=== PATIENT | female | born 1990 | race Caucasian/White ===

== ENCOUNTER 2018-03-18 13:16 | Inpatient (IN) | payer OTHER ==
--- NOTE | 2018-03-18 13:28 | EDPHY ---
H & P Stated Complaint: SI/plan Time Seen by Provider: 03/18/18 13:27 HPI/ROS: CHIEF COMPLAINT: Feeling suicidal HISTORY OF PRESENT ILLNESS: The patient presents the ED with suicidal thoughts with a plan to step in front of a moving vehicle or drive her vehicle into a fixed object at a high rate of speed. The patient has a history of chronic intermittent suicidal thoughts. She also has depression. She reports that she has been compliant with her regular medications. The patient denies any acute medical complaints. The patient comes to the emergency department today because she feels that she requires psychiatric hospitalization for further stabilization. REVIEW OF SYSTEMS: A comprehensive 10 point review of systems is otherwise negative aside from elements mentioned in the history of present illness. Source: Patient Exam Limitations: No limitations - Personal History LMP (Females 10-55): Over 28 Days Ago Current Tetanus/Diphtheria Vaccine: Yes Tetanus Vaccine Date: per patient report 2011 - Medical/Surgical History Hx Asthma: No Hx Chronic Respiratory Disease: No Hx Diabetes: No Hx Cardiac Disease: No Hx Renal Disease: No Hx Cirrhosis: No Hx Alcoholism: No Hx HIV/AIDS: No Hx Splenectomy or Spleen Trauma: No Other PMH: HPV, CPalsy, MULTIPLE ORTHO SURGERIES, ANXIETY, DEPRESSION, PTSD\ Past hx drug abuse - Social History Smoking Status: Heavy smoker - Physical Exam Exam: General Appearance: Alert, no distress Eyes: Pupils equal and round no pallor or injection ENT, Mouth: Mucous membranes moist Respiratory: There are no retractions, lungs are clear to auscultation Cardiovascular: Regular rate and rhythm Gastrointestinal: Abdomen is soft and nontender, no masses, bowel sounds normal Neurological: A&O, normal motor function, normal sensory exam, normal cranial nerves Skin: Warm and dry, no rashes Musculoskeletal: Neck is supple nontender Extremities: symmetrical, full range of motion Psychiatric: Endorses symptoms of depression, suicidal thoughts and a plan. Not agitated, normal thought process, conversant and cooperative Constitutional: Initial Vital Signs Temperature (C) 36.5 C 03/18/18 13:22 Heart Rate 118 H 03/18/18 13:22 Respiratory Rate 18 03/18/18 13:22 Blood Pressure 141/92 H 03/18/18 13:22 O2 Sat (%) 97 03/18/18 13:22 O2 Delivery Mode Room Air Allergies/Adverse Reactions: amitriptyline Allergy (Verified 03/18/18 13:26) cyclobenzaprine [From Flexeril] Allergy (Verified 03/18/18 13:26) dicyclomine [From Bentyl] Allergy (Verified 03/18/18 13:26) ibuprofen Allergy (Verified 03/18/18 13:26) ketorolac Allergy (Verified 03/18/18 13:26) latex Allergy (Verified 03/18/18 13:26) naproxen Allergy (Verified 03/18/18 13:26) olanzapine [From Zyprexa] Allergy (Verified 03/18/18 13:26) ziprasidone [From Geodon] Allergy (Verified 03/18/18 13:26) Home Medications: Medication Instructions Recorded Albuterol Sulfate [Ventolin Hfa] 1 - 2 puffs IH Q4H PRN 03/18/18 Clindamycin 1% [Cleocin 1%] 1 nathan TP DAILY PRN 03/18/18 Etonogestrel [Nexplanon] 68 mg SQ ONCE 03/18/18 Fluticasone Nasal [Flonase Nasal 2 sprays [place] DAILY 03/18/18 [place] (RX)] Omeprazole 40 mg PO DAILY 03/18/18 PARoxetine HCL [Paxil 30mg (*)] 30 mg PO HS 03/18/18 risperiDONE [RisperDAL] 1 mg PO HS 03/18/18 Medical Decision Making ED Course/Re-evaluation: The patient presents to the ED with suicidal thoughts. She denies any ingestion. She denies any acute medical complaints. The patient was placed on a mental health detainer in the emergency department. She was medically cleared for psychiatric evaluation. The patient was evaluated by the mental health team. She has been placed on a 72 hr mental health hold with a plan for inpatient psychiatric hospitalization. 5:30 p.m.: The patient has been accepted for involuntary psychiatric hospitalization by Dr. Edwards at [facility]. I have filled out the EMTALA transfer form. Differential Diagnosis: Differential diagnosis considered includes depression, suicidal ideation, overdose, metabolic derangement - Data Points Laboratory Results: Laboratory Results 03/18/18 13:50 03/18/18 13:50 03/18/18 03/18/18 03/18/18 15:20 13:50 13:50 WBC RBC Hgb Hct MCV MCH MCHC RDW Plt Count MPV Neut % (Auto) Lymph % (Auto) Knott % (Auto) Eos % (Auto) Baso % (Auto) Nucleat RBC Rel Count Absolute Neuts (auto) Absolute Lymphs (auto) Absolute Monos (auto) Absolute Eos (auto) Absolute Basos (auto) Absolute Nucleated RBC Immature Gran % Immature Gran # Sodium 138 mEq/L mEq/L (135-145) Potassium 3.9 mEq/L mEq/L (3.5-5.2) Chloride 105 mEq/L mEq/L (97-110) Carbon Dioxide 21 mEq/l L mEq/l (22-31) Anion Gap 12 mEq/L mEq/L (6-14) BUN 16 mg/dL mg/dL (7-23) Creatinine 0.7 mg/dL mg/dL (0.6-1.0) Estimated GFR > 60 Glucose 97 mg/dL mg/dL (70-100) Calcium 10.1 mg/dL mg/dL (8.5-10.4) Beta HCG, Qual NEGATIVE Urine Opiates Screen NEGATIVE (NEGATIVE) Urine Barbiturates NEGATIVE (NEGATIVE) Ur Phencyclidine Scrn NEGATIVE (NEGATIVE) Ur Amphetamine Screen NEGATIVE (NEGATIVE) U Benzodiazepines Scrn NEGATIVE (NEGATIVE) Urine Cocaine Screen NEGATIVE (NEGATIVE) U Marijuana (THC) Screen NON-NEGATIVE H (NEGATIVE) Ethyl Alcohol < 10 mg/dL mg/dL (0-10) 03/18/18 13:50 WBC 6.79 10^3/uL 10^3/uL (3.80-9.50) RBC 4.90 10^6/uL 10^6/uL (4.18-5.33) Hgb 14.8 g/dL g/dL (12.6-16.3) Hct 44.5 % % (38.0-47.0) MCV 90.8 fL fL (81.5-99.8) MCH 30.2 pg pg (27.9-34.1) MCHC 33.3 g/dL g/dL (32.4-36.7) RDW 12.4 % % (11.5-15.2) Plt Count 327 10^3/uL 10^3/uL (150-400) MPV 9.1 fL fL (8.7-11.7) Neut % (Auto) 72.7 % % (39.3-74.2) Lymph % (Auto) 21.9 % % (15.0-45.0) Knott % (Auto) 4.9 % % (4.5-13.0) Eos % (Auto) 0.1 % L % (0.6-7.6) Baso % (Auto) 0.3 % % (0.3-1.7) Nucleat RBC Rel Count 0.0 % % (0.0-0.2) Absolute Neuts (auto) 4.93 10^3/uL 10^3/uL (1.70-6.50) Absolute Lymphs (auto) 1.49 10^3/uL 10^3/uL (1.00-3.00) Absolute Monos (auto) 0.33 10^3/uL 10^3/uL (0.30-0.80) Absolute Eos (auto) 0.01 10^3/uL L 10^3/uL (0.03-0.40) Absolute Basos (auto) 0.02 10^3/uL 10^3/uL (0.02-0.10) Absolute Nucleated RBC 0.00 10^3/uL 10^3/uL (0-0.01) Immature Gran % 0.1 % % (0.0-1.1) Immature Gran # 0.01 10^3/uL 10^3/uL (0.00-0.10) Sodium Potassium Chloride Carbon Dioxide Anion Gap BUN Creatinine Estimated GFR Glucose Calcium Beta HCG, Qual Urine Opiates Screen Urine Barbiturates Ur Phencyclidine Scrn Ur Amphetamine Screen U Benzodiazepines Scrn Urine Cocaine Screen U Marijuana (THC) Screen Ethyl Alcohol Departure - Departure Disposition: [facility] IP Clinical Impression: Suicidal ideation Condition: Good Referrals: NONE *PRIMARY CARE P,. [Primary Care Provider] - As per Instructions
[2018-03-18 13:57] LABS: PLATELET COUNT 327 10^3/uL (150-400)
[2018-03-18] MEDS ORDERED: LORazepam 1 MG TAB PO ONE ×2 (17:37→20:06)
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
--- NOTE | 2018-03-18 18:14 | ASMTTCLDSP ---
TLC Discharge Disposition Disposition: Answers: Admit Discharge Concerns/Recommendations: Notes: In consultation with [facility] ED physician, Dr Caro and on-call psychiatrist, Dr Edwards , both concurred that Pt does appear to meet 27-65 criteria requiring psychiatric hospitalization as Pt does appear to be an imminent risk of harm to self/ due to a mental illness condition. Was patient given the Answers: Yes Inpatient Behavioral Health Prohibited Belongings List while in the ED? For inpatient Dr Edwards admission, the following psychiatrist agreed to accept patient for admission to Behavioral Health ([facility]): Type of Hold: Answers: M1/72-hour Hold Hold initiated by: Answers: Other Notes: Clinician Date Signed: 03/18/2018 06:14 PM Electronically Signed By:Lorraine Pastor
[2018-03-18] MEDS ORDERED: MAGNESIUM HYDROXIDE 30 ML UDCUP PO PRN (22:37)
[2018-03-18] MEDS ORDERED: NICOTINE POLACRILEX 2 MG GUM B PRN (22:37)
[2018-03-18] MEDS ORDERED: MAG HYDROX/AL HYDROX/SIMETH 30 ML UDCUP PO PRN (22:37)
[2018-03-18] MEDS ORDERED: ACETAMINOPHEN 325 MG TAB PO PRN (22:37)
[2018-03-18] MEDS ORDERED: LORazepam 0.5 MG TAB PO PRN (22:37)
[2018-03-18] MEDS ORDERED: ALBUTEROL 60 PUFFS/8 GM MDI IH PRN (22:42)
[2018-03-18] MEDS ORDERED: risperiDONE 1 MG TAB PO SCH (22:45)
[2018-03-18] MEDS ORDERED: PARoxetine HCL 10 MG TAB PO SCH (23:45)
--- NOTE | 2018-03-19 05:35 | GCON ---
MEDICINE CONSULTATION DATE OF CONSULTATION: 03/18/2018 This is a medicine consultation at the request of [facility] for general medical evaluation an d management prior to behavioral health hospitalization. CHIEF COMPLAINT: Suicidal. HISTORY: This is a 27-year-old female who has a past medical history that includes cerebral palsy, a s well as anxiety, depression, and PTSD. The patient notes that she has chronic pain due to her cere bral palsy and multiple surgical interventions in the past. She presents to the ER with concerns susie t she is going to kill herself. She states she had a plan to throw herself in front of a car. At th e time of my evaluation, the patient is somewhat anxious and tearful and states she feels as if she m ight cry or scream, but otherwise states that she feels safe and is glad that she is here to get some help. She denies any acute medical concerns at this time. PAST MEDICAL HISTORY: Includes: 1. Cerebral palsy. 2. HPV. 3. Anxiety. 4. Depression. 5. PTSD. 6. Prior suicidal ideation. PAST SURGICAL HISTORY: Multiple surgeries from her childhood on involving the waist down. She notes essentially every tendon, muscle, etc., has been operated on at some point or another due to her cer ebral palsy. FAMILY HISTORY: Patient is adopted and her family history is unknown. 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 She is a d aily heavy smoker. She drinks alcohol occasionally. She denies other drug use, but has a prior hist ory of polysubstance abuse. REVIEW OF SYSTEMS: A 10-point review of systems obtained and negative except as per HPI. HOME MEDICATIONS: Include: 1. Clindamycin topical cream. 2. Flonase nasal spray. 3. Nexplanon. 4. Albuterol. 5. Risperdal. 6. Paxil. 7. Omeprazole. ALLERGIES: Multiple. Please see the EHR for further details. PHYSICAL EXAM: VITAL SIGNS: BP 129/89, heart rate 92, respiratory rate 16, O2 sat is 98% on room ai r, temperature is 36.7. GENERAL APPEARANCE: This is a young female. She is awake and pal rt. She is in no acute distress. EYES: Anicteric. HENT: Oropharynx clear. CARDIOVASCULAR: Regu lar rate and rhythm. No MRG. PULMONARY: CTA bilaterally. Normal work of breathing. ABDOMEN: Sof t, nontender, nondistended. EXTREMITIES: No clubbing, cyanosis, or edema. SKIN: Warm, dry, well p erfused. NEURO/PSYCH: Anxious, otherwise oriented and appropriate. CLINICAL DATA: Labs reviewed. CBC is unremarkable. Chemistry likewise unremarkable. Beta HCG is n egative. Tox screen is positive for marijuana. 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 PROBLEM: 1. Suicidal ideation. The patient presents with acute on chronic suicidal ideation with a plan to t hrow herself in front of a quickly moving car. She is tearful and anxious on exam. She does not fee l safe to return home and has been accepted to the behavioral health unit for medical stabilization. I do not see any medical reason to defer any treatment felt to be indicated by the psychiatric servi ce and further treatment will be deferred to their discretion. 2. Chronic pain. She has been managing this with Tylenol and physical therapy. She does admit that she has not been compliant with physical therapy as late and this likely would be a good choice for her moving forward. 3. Cerebral palsy with gait instability and history of multiple surgeries and chronic pain as per ab saucedo. Again, recommending PT. 4. Anxiety, depression, PTSD. As per problem #1, this will be per the discretion of her behavioral health team. Thank you for this consultation. Medicine will be available peripherally. Should questions arise du ring patient's hospitalization. The patient is new to my care. Old records reviewed, summarized as per HPI and past medical history. Care plan reviewed with ER physician. /[id number]/MODL
--- NOTE | 2018-03-19 07:41 | ASMTBHMTP ---
Master Treatment Plan Master Treatment Plan Answers: Depressed Mood with for: Suicidal Ideation Date: 03/19/2018 Diagnosis on Admission: Major Depressive Disorder, Recurrent, Severe 296.33 (F33.2) Expected length of stay: 3-5 days Reason for admission: Notes: Per Report: Pt is a 27 y/o female who presents to the ED voluntarily due to concerns of self-harm. Pt has an extensive hx of complicated trauma and was never able to develop a secure attachment due to some of this trauma occuring at a very young age. Clinician placed pt on an M1 following the evaluation. Per M1, "Pt has multiple past suicide attempts, including 1 in a hospital. Her SI has been increasing in both frequency and intensity this past month. She has multiple plans. Presented voluntarily due to her fear of self-harm". Pt has an extensive psychiatric hx with over 20 hospitalizations and multiple suicide attempts. Pt's last hospitalization was at [facility] in July 2017. Pt stated a suicide attempt brought her to the hospital and that while she was in [facility] she attempted suicide; she was found unconscious. Pt cannot recall what either attempt was. Prior to that hospitalization she had been receiving ECT for approximately 6 months. Pt reports a baseline of severe depression and anxiety, but a noticeable increase in her ability to function over the last few months. She has held a job since October, able to buy herself a car and begin to pay off loans. This past month she observed that her SI, which is ongoing, was increasing in both frequency and intensity. This past week she noticed agitation and irritability; these are moods that are not usual for her. She and her therapist cannot link her changes in mood with a specific event and were surprised at their presence given her personal achievements. She endorsed an increase in hopelessness, guilt, worthlessness,difficulty focusing, difficulty making decisions, difficulty enjoying herself and a decrease in energy. She reports great difficulty sleeping. She struggles to fall asleep, stay asleep and has nightmares. Her appetite vascillates and has decreased over the past 2 weeks. During the evaluation she presented multiple plans for killing herself which include using her car and drinking chemicals. She presents these to the clinician with a dissasociated bright affect.(she has been tearful several times) Her therapist has been encouraging her to be hospitalized. She was pleased to be pro-active and come in voluntary. Pt has a hx of cutting, but has not cut since at least last July. She does find herself scratching herself when her PTSD is triggered. Pt has generalized anxiety which takes the form of continual worrying and questioning of herself. She also experiences multiple symptoms of PTSD which include triggering, intrusive memories, hypervigilence and nightmares. She has been given the diagnosis of reactive attachment disorder and borderline personality disorder in the past; these both suggest that she may struggle to regulate her emotions. Clinician did ask her if her suicidal acts were more impulsive, as a reaction to an event or did the intent grow over time; she believes that the intent grows over time. Patient's stated presenting problems: Notes: "suicidal ideations." Patient's goals for treatment: Notes: to get better Patient's strengths: Notes: none Identify supports outside of hospital: Notes: family and friends Discharge criteria: Notes: Suicidal Ideation will resolve and patient will have a plan to safely manage recurrent suicidal ideation. Initial disposition plan/considerations: Notes: Possibly return home with parents, don't know yet. Master Treatment Plan Required Signatures Psychiatrist signature: Answers: Psychiatrist: RN on-shift signature: Answers: RN: Patient signature: Answers: Patient: Date Signed: 03/19/2018 07:41 AM Electronically Signed By:Paul Velasco
[2018-03-19] MEDS ORDERED: PARoxetine HCL 10 MG TAB PO SCH (08:59)
[2018-03-19] MEDS ORDERED: QUEtiapine FUMARATE 50 MG TAB PO PRN (09:00)
[2018-03-19] MEDS: clonazePAM 0.5 MG TAB PO SCH ×2 (09:44→19:32)
[2018-03-19] MEDS: PANTOPRAZOLE SODIUM 40 MG TAB PO SCH (09:44)
--- NOTE | 2018-03-19 10:09 | PDMN ---
Medical Necessity Medical necessity: [facility] [id number], Major Depressive Disorder, Adult: Inpatient Care , 3 days: 27 yo w/ major depressive do, recurrent, severe, suicidal ideation, risk of self harm, M1 hold. Other dx include PTSD and borderline personality d/ o.
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
[2018-03-19] MEDS: FLUTICASONE NASAL 120 SPRAYS/16 GM MDI EACHNARE SCH (14:16)
[2018-03-19] MEDS: PARoxetine HCL 20 MG TAB PO SCH (19:32)
[2018-03-20] MEDS ORDERED: clonazePAM 0.5 MG TAB PO SCH (08:46)
[2018-03-20] MEDS: PANTOPRAZOLE SODIUM 40 MG TAB PO SCH (08:47)
[2018-03-20] MEDS: FLUTICASONE NASAL 120 SPRAYS/16 GM MDI EACHNARE SCH (09:03)
--- NOTE | 2018-03-20 11:04 | SOAPPROG ---
SOAP Progress Note Assessment/Plan: Assessment: Major Depressive Disorder, Severe, With Anxious Distress, Panic Disorder. No improvement noted. Self harm on unit yesterday. Patient reports not feeling safe to discharge and could benefit from inpatient hospitalization for observation for safety and medication adjustment (see subjective/objective note) . Patient could benefit from additional stay to evaluate medications for nightmares, anxiety, and depression; establish safe discharge plan. Patient could benefit from continued inpatient hospitalization for crisis stabilization , safety, and medication evaluation. Plan: 1. Psychotropic medications: After reviewing options, risks, and benefits patient agrees to continue current medications with following changes: increase Klonipin to 0.5 mg po BID, begin trial of Prazosin 1 mg po QHS, and discontinue Seroquel 50 mg po Q6HRS PRN. No other medication changes at this time as more time is needed to determine ongoing tolerability and efficacy. Plan is to continue to observe patient for response and side effects from medications, and ongoing monitoring and evaluation. 2. Review with patient informed consent and recommendations for psychotropic medication treatment listed below 3. Labs: no additional labs at this time 4. Therapy: continue milieu and group therapy 5. Further investigation including gathering information from patients relatives and review of past case records to inform treatment plan. 6. Safety/Wellness plan and follow-up outpatient appointments to be established prior to discharge. Next steps are for patient to meet with managed care provider to plan a safe discharge plan and establish outpatient services for ongoing treatment. 7. Confer with inpatient treatment team regarding treatment plan. 8. Psychosocial stressors addressed through outpatient case manager 9. Legal status: M1 10. Consider discharge on if patient is in stable condition, safe, and has a safe discharge plan. PSYCHOTROPIC MEDICATION TREATMENT INFORMED CONSENT and RECOMMENDATIONS: Review nature of condition, diagnosis, and prognosis. Review nature and purpose of psychotropic medication treatment. Review type of psychotropic medications being ordered. Review risk and benefits of psychotropic medication treatment. Review probable length of time patient will need to take medications. Review risk and benefits of not undergoing psychotropic medication treatment. Review alternative treatments to psychotropic medications. Review psychotropic medications contraindications, drug-drug interactions, side effects, and importance of reporting any side effects to a psychiatric provider or nurse during inpatient hospitalization, and upon discharge to patients psychiatric outpatient provider, primary care provider, or other health adult live in caregiver. Review importance of asking a nurse, psychiatric provider, or primary care provider any questions or problems concerning the psychotropic medications. Verify patient understands the information that has been provided, and understands, accepts, and agrees to psychotropic medications. Review patients safety plan and importance of patient to report to staff while hospitalized if patient is ever a danger to self/others, or unable to care for self, and upon discharge, the importance for patient to contact [facility] [place] [facility] or [facility], or go to the nearest emergency room, if patient is ever a danger to self/others, or unable to care for self. Recommend that upon discharge patient establish medication management treatment with a psychiatric provider, establishes routine therapy appointments, and follow-up with primary care provider. Verify patient understands and agrees to these recommendations. 03/20/18 11:07 Subjective: Following up with patient for evaluation of depression, anxiety, and safety. Patient reports, "Not feeling too good. Didnt sleep well last night. Had horrible nightmares. Patient expresses the following psychiatric symptoms severe anxiety. Patient reports taking medications as prescribed, and describes response to medications as poor. Patient reports, The Klonipin did not seem to help with my anxiety yesterday; was triggered during a group and started stabbing myself with a pencil." Patient does not report undesirable side effects from the medications, and agrees to continue current medications. Patient agrees to increase Klonipin to 0.5 mg po BID and begin trial of Prazosin 1 mg po QHS. Patient agrees to discontinue Seroquel 50 mg PRN. Patient reports she is unsure how many hours of sleep she got last night, reports waking several times through night due to nightmares. Objective: Vital Signs Temp Pulse Resp BP Pulse Ox 36.9 C 67 14 107/56 L 94 03/20/18 06:00 03/20/18 06:00 03/20/18 06:00 03/20/18 06:00 03/20/18 06:00 NURSING REPORT: Consulted with nursing for update on patients progress in treatment. Nurses report patient is engaged in treatment, is attending some groups, slept 6 hours, expresses the following psychiatric symptoms: severe anxiety, exhibits the following psychiatric symptoms: anxious, withdrawn to room ; is eating all meals, is agreeable to medications and taking as prescribed with no report of side effects, with no s/s of EPS/akathisia, and denies SI/HI, denies A/V hallucinations, and denies delusions. TREATMENT TEAM MEETING: Patient to be restricted from pencils due to self-harm; continues to exhibit inability to keep herself safe on unit. Consider reverse room. MSE: The patient is a well-nourished female looking stated chronological age. Attire is appropriate and dress is casual. Grooming status is appropriate. Ambulation is assisted by walker. Gait is staggering, unsteady. Posture is normal and relaxed. Eye contact is appropriate. Motor activity is appropriate with purposeful, organized, coordinated movements; with no involuntary movements. Attitude is cooperative and friendly. Patient is attentive and relates well to this interviewer. Language production is spontaneous. R/R/V normal. Articulation is clear. Patient reports mood as anxious with congruent affect. Patients thought process is linear and logical with no signs of thought disorder. Patient does report suicidal ideation; denies homicidal thoughts, ideas, or plans. Patient denies auditory hallucinations, denies visual hallucinations. Patient denies delusions. Patient does not appear to be attending to internal stimuli. Patients attention and concentration are fair. Patient is oriented to person, place, time, and situation. Patients insight and judgement are poor. - Time Spent With Patient Time Spent With Patient: 15 minutes, met with patient individually. - Pending Discharge Pending Discharge Within 24 Hours: No Pending Discharge Within 48 Hours: No ICD10 Worksheet Patient Problems: Problems Problem Status Onset Suicidal ideation Acute Major depressive disorder, recurrent episode, severe with anxious distress Chronic Panic disorder Chronic Post traumatic stress disorder Chronic Borderline personality disorder Acute Cerebral palsy Acute Depression Acute Opioid dependence in early, early partial, sustained full, or sustained partial remission Acute
[2018-03-20] MEDS ORDERED: PNEUMOCOCCAL 0.5ML VACCINE VIAL (PNEUMOVAX 23) IM ONE (12:40)
[2018-03-20] MEDS: LORazepam 1 MG TAB PO PRN ×2 (13:20→19:32)
--- NOTE | 2018-03-20 16:20 | SOAPPROG ---
SOAP Progress Note Assessment/Plan: Assessment: Left Achilles tendon swelling and tenderness. Agree with indication for orthopedic evaluation after discharge. Per her request I have prescribed acetaminophen. She says she took 3 tablets morning and night. I have ordered 1000 mg q.12 hours. Superficial laceration, left wrist. Expect spontaneous healing. Advise regular evaluation regarding risk for infection 03/20/18 16:19 Subjective: Asked to see patient regarding left Achilles tendon pain and regarding laceration on left wrist. She reports that she has had pain and swelling in her Achilles tendon for some time and she has been recommended for orthopedic evaluation due to possible risk of tendon rupture. She intentionally scratched herself on the wrist yesterday. Objective: Vital Signs Temp Pulse Resp BP Pulse Ox 36.9 C 67 14 107/56 L 94 03/20/18 06:00 03/20/18 06:00 03/20/18 06:00 03/20/18 06:00 03/20/18 06:00 Physical Exam - Physical Exam General Appearance: WD/WN, alert, no apparent distress Skin: normal color, warm/dry, other (Approximately 3-4 cm superficial laceration over left wrist with minimal surrounding erythema. No drainage. Mild tenderness.) Extremities: other (Left Achilles tendon with tender swollen area mid distal. Reduced range of motion in flexion at left ankle. Left foot is held in pronation when she walks.) ICD10 Worksheet Patient Problems: Problems Problem Status Onset Suicidal ideation Acute Major depressive disorder, recurrent episode, severe with anxious distress Chronic Panic disorder Chronic Post traumatic stress disorder Chronic Borderline personality disorder Acute Cerebral palsy Acute Depression Acute Opioid dependence in early, early partial, sustained full, or sustained partial remission Acute
[2018-03-20] MEDS: ACETAMINOPHEN 500 MG TAB PO SCH (19:31)
[2018-03-20] MEDS: PARoxetine HCL 20 MG TAB PO SCH (19:32)
[2018-03-20] MEDS ORDERED: PRAZOSIN HCL 1 MG CAP PO SCH (21:00)
[2018-03-20] MEDS ORDERED: LORazepam 1 MG TAB PO ONE (23:00)
[2018-03-21 06:39] VITALS: BP 129/58
[2018-03-21] MEDS: ACETAMINOPHEN 500 MG TAB PO SCH (08:14)
[2018-03-21] MEDS: FLUTICASONE NASAL 120 SPRAYS/16 GM MDI EACHNARE SCH (08:15)
[2018-03-21] MEDS: PANTOPRAZOLE SODIUM 40 MG TAB PO SCH (08:15)
[2018-03-21] MEDS: LORazepam 1 MG TAB PO PRN (10:21)
--- NOTE | 2018-03-21 11:46 | BDS ---
[f rep st] BEHAVIORAL HEALTH DISCHARGE SUMMARY REASON FOR ADMISSION: From the ED note dated 03/18/2018, patient presented to the emergency department with suicidal thoughts with a plan to step in front of a moving vehicle or drive her vehicle into a fixed object at a high rate of speed. The patient was admitted involuntarily on an M1 hold due to being a danger to herself. The patient was admitted for safety, crisis stabilization, and medication management. ADMITTING DIAGNOSES: 1. Major depressive disorder, recurrent episode, severe, with anxious distress. 2. Posttraumatic stress disorder. 3. Panic disorder. ADMISSION PHYSICAL EXAM: The patient was seen for history and physical on 03/18, by Internal Medicine consultation for medical clearance for inpatient psychiatric hospitalization and treatment. The patient was medically cleared for inpatient psychiatric hospitalization and treatment. For further details, please refer to consultation note dated 03/18/2018. ADMISSION LABS: 1. CBC within normal limits, except eosinophils were low at 0.1, absolute eosinophils were low at 0.01. 2. BMP within normal limits, except carbon dioxide was low at 21. 3. Hemoglobin A1c within normal limits at 5.0. 4. Liver function within normal limits, except AST was elevated at 50. Total protein was elevated at 8.5. 5. Lipid panel within normal limits, except LDL cholesterol calculated was elevated at 113, VLDL cholesterol was elevated at 26, non-HDL cholesterol was elevated at 139. 6. Beta-hCG qualitative test was negative. 7. Toxicology screen was negative for marijuana, negative for all other substances of abuse and negative for ethyl alcohol. MAJOR PROCEDURES OR TESTS: None. HOSPITAL COURSE: The most prominent symptoms and behaviors while the patient was here were reports of severe anxiety and depression. Treatment modalities utilized were milieu and group therapy. Paxil was increased at time of admission to 40 mg p.o. q.h.s. to target mood symptoms. It was tolerated with no report of side effects and with good response. Klonopin trial with starting dose of 0.25 mg p.o. b.i.d. was titrated to 0.5 mg p.o. b.i.d. The patient reported poor response. Klonopin was discontinued. Ativan 1 mg p.o. q.6 hours p.r.n. was started to target anxiety and panic symptoms. It was tolerated with no report of side effects and with good response. Prazosin 1 mg p.o. q.h.s. was started to target nightmares related to posttraumatic stress disorder and was tolerated with no report of side effects and with good response. The patient has improved considerably with no signs of psychiatric symptoms and no psychiatric symptoms expressed at time of discharge. The patient reports she has improved since admission, states to be in stable condition, feels safe to discharge, and she contracts for safety. The patient's response to treatment was good. There were no adverse or unexpected results of treatment. The patient was safe throughout her stay, active in treatment, engaged in groups, and was appropriate with staff and other patients. The patient met with the treatment team prior to discharge to assess readiness to discharge and review discharge plan. The treatment team consensus is the patient is in stable condition, has a safe discharge plan, and is ready to discharge today. CONDITION AT DISCHARGE: Patient is in stable condition and is no longer a danger to self or others, and is not gravely disabled due to mental illness. Patient is no longer in need of inpatient level of care, and can be safely and effectively treated within the community. The patients level of risk at time of discharge is low. MSE: The patient is casually dressed and with good hygiene , and looks stated age. Patient is sitting, posture is upright, and position is relaxed. Patient appears awake, alert, and responds appropriately and reasonably during interview. Patient is engaged, relates well to interviewer, and emotional facial expression is appropriate to situation and changes appropriately with topic. Patient is cooperative, makes comfortable eye contact , and movements are voluntary, deliberate, coordinated, and smooth and even with no inappropriate movements. Patient makes laryngeal sounds effortlessly and shares conversation appropriately; pace of conversation is appropriate, and stream of talking is fluent; articulation is clear and understandable; word choice is effortless and appropriate for education level; completes sentences, occasionally pausing to think; rate and volume are appropriate for interview and setting. Patient reports mood as euthymic. Patients affect is stable with full variable range, congruent with mood, and appropriate to speech and circumstances. Patient has linear and logical thinking, with no loose associations, tangential thought, thought blocking, concrete thinking, or any other signs of formal thought disorder. Patient denies suicidal and homicidal ideation, and denies hallucinations and delusions. Patient appears to be a reliable historian with sound judgement and good insight into current condition. Patient has no apparent dysfunction in recent or remote memory noted , and no evidence of gross cognitive dysfunction noted at any point during the interview. DISCHARGE DIAGNOSES: 1. Major depressive disorder, recurrent episode, severe, with anxious distress. 2. Posttraumatic stress disorder. 3. Panic disorder. CURRENT MEDICATIONS: After reviewing options, risks, and benefits with the patient, the patient agrees to continue: 1. Paxil 40 mg p.o. q.h.s. 2. Prazosin 1 mg p.o. q.h.s. 3. Ativan 1 mg p.o. b.i.d. p.r.n. 4. Tylenol 1000 mg p.o. q.12 hours p.r.n. 5. Protonix 40 mg p.o. q. day. 6. Flonase 2 sprays each naris q. day. 7. Albuterol sulfate 1-2 puffs inhaled q.4 hours p.r.n. 8. Omeprazole 40 mg p.o. q. day. 9. Clindamycin 1% one application topical q. day p.r.n. At time of discharge, the patient requests prescriptions for Paxil, prazosin, and Ativan. Prescriptions for 30 days are provided. The prescriptions are reviewed with the patient at time of discharge to ensure patient understanding and accuracy. The patient left the hospital independently and voluntarily and plans to return home where she lives with her parents. FOLLOWUP: home school coordinator reports the appropriate outpatient follow-up services have been established and outpatient appointments have been scheduled. The patient received written instructions with times and dates of outpatient follow-up appointments. The following follow-up recommendations were provided to the patient at discharge: Continue psychotropic medications as prescribed and attend appointments as scheduled. Report any side effects to a psychiatric outpatient provider, a primary care provider, or other health resident care manager rn. Address any questions or problems concerning the psychotropic medications with a psychiatric outpatient provider, a primary care provider, or other health resident care manager rn. Contact [facility] or [facility], or go to the nearest emergency room, if you are ever a danger to yourself/others, or unable to care for yourself. As soon as possible, establish a routine medication management treatment with a psychiatric provider, establish routine therapy appointments, and follow-up with a primary care provider. LEGAL COURSE: The patient was admitted on an M1 hold. The patient became voluntary during her stay. The patient discharged today independently and voluntarily. ATTITUDE AT TIME OF DISCHARGE: The patients attitude was positive at time of discharge, and patient reports looking forward to discharging today. The patient reports she feels safe to discharge, is no longer a danger to herself or others, is in stable condition, and contracts for safety. Patient states she will continue medications as prescribed, and establish medication management treatment with an outpatient provider after discharge. Patient reports she understands the information that has been provided to her, and she understands, accepts, and agrees to psychotropic medications. Patient describes internal protective factors as the coping skills she has learned while hospitalized here, and she plans to continue to practice these coping skills after discharge. LABS AND STUDIES: There were no pending labs or studies at time of discharge. ADVANCE DIRECTIVES: There were no advance directives on file, and patient was full code during this hospitalization. The following psychotropic medication treatment informed consent and recommendations were provided to the patient at time of discharge. Patient reports she understands, accepts, and agrees to the information that has been provided. PSYCHOTROPIC MEDICATION TREATMENT INFORMED CONSENT and RECOMMENDATIONS: Review nature of condition, diagnosis, and prognosis. Review nature and purpose of psychotropic medication treatment. Review type of psychotropic medications being prescribed. Review risk and benefits of psychotropic medication treatment. Review probable length of time will need to take medications. Review risk and benefits of not undergoing psychotropic medication treatment. Review alternative treatments to psychotropic medications. Review psychotropic medications contraindications, side effects, and importance of reporting any side effects to a psychiatric provider, primary care provider, or other health resident care manager rn. Review importance of her asking a psychiatric provider or primary care provider any questions or problems concerning the psychotropic medications. Review importance of reporting to a psychiatric provider, primary care provider, or other health resident care manager rn if she plans to or becomes . Review safety plan and the importance to contact [facility] or 1 , or go to the nearest emergency room, if ever a danger to yourself/others, or unable to care for yourself. Recommend upon discharge to establish routine medication management treatment with a psychiatric provider, establish routine therapy appointments, and follow-up with a primary care provider. Verify patient understands, accepts, and agrees to the information that has been provided. /[id number]/[id number]
== END 2018-03-21 11:13 | disposition home or self-care (01) | DRG 885 ==
LOC: BBEH 21:48
PROVIDERS: ADMIT Psychiatry & Neurology Behavioral Neurology & Neuropsychiatry; ATTEND Psychiatry & Neurology Behavioral Neurology & Neuropsychiatry
DX: F33.3 Major depressive disorder, recurrent, severe with psychotic symptoms (principal); F43.10 Post-traumatic stress disorder, unspecified; F41.0 Panic disorder [episodic paroxysmal anxiety]; G89.29 Other chronic pain; G80.4 Ataxic cerebral palsy; Z23 Encounter for immunization; Z72.0 Tobacco use
CPT/HCPCS: 80305; G0009; G0480